=== PATIENT | male | born 1990 | race Hispanic/Latino ===

== ENCOUNTER 2018-12-24 19:08 | Inpatient (IN) | payer OTHER ==
[2018-12-24] MEDS ORDERED: Sodium Chloride 0.9% 1,000 ML IV STA (19:34)
[2018-12-24] MEDS ORDERED: Sodium Chloride 0.9% 50 ML IV ONE (19:40)
[2018-12-24] MEDS ORDERED: Iohexol 300 100 ML IJ ONE (19:40)
[2018-12-24 20:32] LABS: BASO % 0.6 % (0.0-2.0); EOS # 0.1 K/uL (0.0-0.7); EOS % 1.6 % (0.0-4.0); HEMOGLOBIN 16.4 g/dL (12.0-18.0); LYMPH # 1.2 K/uL (1.0-4.3); LYMPH % 14.4 % (20.0-40.0); MEAN CELL VOLUME 89.5 fl (80.0-94.0); MEAN CORPUSCULAR HEMOGLOBIN 30.2 pg (27.0-31.0); MEAN CORPUSCULAR HGB CONC 33.8 g/dL (33.0-37.0); MEAN PLATELET VOLUME 8.2 fl (7.2-11.7); MONO # 0.5 K/uL (0.0-0.8); MONO % 6.4 % (0.0-10.0); NEUT # 6.2 K/uL (1.8-7.0); RBC 5.41 Mil/uL (4.40-5.90); RED CELL DISTRIBUTION WIDTH 12.7 % (11.5-14.5)
[2018-12-24 20:34] LABS: VENOUS BLOOD GAS BASE EXCESS 3.6 mmol/L (0.0-2.0); VENOUS BLOOD GAS PCO2 52 mmHg (40-60); VENOUS BLOOD GAS PO2 28 mm/Hg (30-55); VENOUS BLOOD PH 7.37 (7.32-7.43)
[2018-12-24 20:42] LABS: ALB/GLOB RATIO 1.7 (1.0-2.1); ALBUMIN 4.2 g/dL (3.5-5.0); ALT/SGPT 77 U/L (21-72); AST/SGOT 43 U/L (17-59); BLOOD UREA NITROGEN 22 mg/dl (9-20); CALCIUM 9.1 mg/dL (8.4-10.2); GFR NON-AFRICAN AMERICAN > 60; LIPASE 112 U/L (23-300)
[2018-12-24] MEDS ORDERED: Piperacillin/Tazobact 3.375 GM in Sodium Chloride 0.9% 100 ML IVPB SCH (21:00)
--- NOTE | 2018-12-24 21:16 | ED PDOC ---
HPI: Abdomen Time Seen by Provider: 12/24/18 19:27 Chief Complaint (Nursing): Abdominal Pain Chief Complaint (Provider): Abdominal Pain History Per: Patient History/Exam Limitations: no limitations Onset/Duration Of Symptoms: Hrs Current Symptoms Are (Timing): Still Present Additional Complaint(s): Patient is a 28 y/o male with no significant PMhx who presents to the ED for evaluation of abdominal pain onset this morning. Patient states the pain was initially epigastric and periumbilical but now persists in his right lower quadrant. Of note, patient last ate at 16:00 today. Patient denies abnormal bowel movements, fever, nausea, vomiting, and diarrhea. PCP: Dr. Hector Marie ([place]) Past Medical History Reviewed: Historical Data, Nursing Documentation, Vital Signs Vital Signs: Last Vital Signs Temp 99.3 F 12/24/18 19:20 Pulse 88 12/24/18 19:20 Resp 18 12/24/18 19:20 BP 116/75 12/24/18 19:20 Pulse Ox 99 12/24/18 19:20 Primary Care Provider: Hector Marie I - Medical History PMH: HIV, HTN - Surgical History Surgical History: No Surg Hx - Family History Family History: States: No Known Family Hx - Home Medications Home Medications: Ambulatory Orders Medication Instructions Recorded Emtricitabine/Tenofovir Diso 1 tab PO DAILY 12/25/18 [Truvada 200 MG-300 MG] Lisinopril [Zestril] 10 mg PO DAILY 12/25/18 - Allergies Allergies/Adverse Reactions: Allergies Allergy/AdvReac Type Severity Reaction Status Date / Time No Known Allergies Allergy Verified 12/24/18 19:20 Review of Systems ROS Statement: Except As Marked, All Systems Reviewed And Found Negative Constitutional: Negative for: Fever Gastrointestinal: Positive for: Abdominal Pain (right lower quadrant). Negative for: Nausea, Vomiting, Diarrhea Physical Exam - Reviewed Nursing Documentation Reviewed: Yes Vital Signs Reviewed: Yes - Physical Exam Appears: Positive for: No Acute Distress Head Exam: Positive for: ATRAUMATIC, NORMAL INSPECTION, NORMOCEPHALIC Skin: Positive for: Normal Color, Warm, DRY Eye Exam: Positive for: EOMI, Normal appearance, PERRL Neck: Positive for: Normal, Painless ROM, Supple Cardiovascular/Chest: Positive for: Regular Rate, Rhythm. Negative for: Murmur Respiratory: Positive for: Normal Breath Sounds. Negative for: Respiratory Distress Gastrointestinal/Abdominal: Positive for: Tenderness (at [place]Burney's Point), Other (Positive Rovsings Sign) Back: Positive for: Normal Inspection. Negative for: L CVA Tenderness, R CVA Tenderness Extremity: Positive for: Normal ROM. Negative for: Pedal Edema, Deformity Neurological/Psych: Positive for: Alert, Oriented (x3) - Laboratory Results Result Diagrams: 12/24/18 19:12/24/18: Lab Results: pO2 28 mm/Hg (30-55) L 12/24/18 20:00 VBG pH 7.37 (7.32-7.43) 12/24/18 20:00 VBG pCO2 52 mmHg (40-60) 12/24/18 20:00 VBG HCO3 26.5 mmol/L 12/24/18 20:00 VBG Total CO2 31.7 mmol/L (22-28) H 12/24/18 20:00 VBG O2 Sat (Calc) 53.3 % (40-65) 12/24/18 20:00 VBG Base Excess 3.6 mmol/L (0.0-2.0) H 12/24/18 20:00 VBG Potassium 3.9 mmol/L (3.6-5.2) 12/24/18 20:00 Sodium 135.0 mmol/L (132-148) 12/24/18 20:00 Chloride 102.0 mmol/L (98-107) 12/24/18 20:00 Glucose 87 mg/dL (75-110) 12/24/18 20:00 Lactate 0.8 mmol/L (0.7-2.1) 12/24/18 20:00 FiO2 21.0 % 12/24/18 20:00 Total Bilirubin 0.5 mg/dl (0.2-1.3) 12/24/18: AST 43 U/L (17-59) 12/24/18: ALT 77 U/L (21-72) H 12/24/18:55 Alkaline Phosphatase 76 U/L (38-126) 12/24/18: Total Protein 6.6 G/DL (6.3-8.2) 12/24/18:55 Albumin 4.2 g/dL (3.5-5.0) 12/24/18 19:55 Globulin 2.4 gm/dL (2.2-3.9) 12/24/18 19:55 Albumin/Globulin Ratio 1.7 (1.0-2.1) 12/24/18 19:55 Lipase 112 U/L (23-300) 12/24/18 19:55 - ECG O2 Sat by Pulse Oximetry: 99 (RA) Pulse Ox Interpretation: Normal Medical Decision Making Medical Decision Making: Time: 1933 Impression: Likely acute appendicitis. Less likely diverticulitis, mesenteritis, colitis, or others not considered. Plan: Type and Screen VBG CT Abd & Pelvis IV Contrast only CMP Lipase CBC IV Fluids Toradol 15 mg IVP Zosyn Blood Culture Urine Culture 2215 EXAM: CT Abdomen and Pelvis with IV contrast CLINICAL HISTORY: Rlq pain TECHNIQUE: Axial computed tomography images of the abdomen and pelvis with intravenous contrast. 752.37 mGy-cm CONTRAST: With; [id number] 95ML COMPARISON: None provided. FINDINGS: LUNG BASES: The lung bases appear clear. No pleural effusions are seen. LIVER: Unremarkable. GALLBLADDER AND BILE DUCTS: The gallbladder appears within normal limits. No radioopaque gallstones are seen. No biliary ductal dilatation is evident. PANCREAS: Unremarkable. SPLEEN: Unremarkable. ADRENAL GLANDS: Unremarkable. KIDNEYS, URETERS, AND BLADDER: The kidneys appear within normal limits. There is no hydronephrosis or hydroureter. No urinary calculi are seen. STOMACH AND BOWEL: Duodenal wall thickening is seen ( 6 mm) compatible with severe duodenitis. Consider follow up with upper endoscopy. APPENDIX: Fluid-filled thick-walled appendix is seen consistent with appendicitis (IM 109- 117 Se 3). No rupture or abscess is seen. PERITONEUM: No free fluid. No free air. LYMPH NODES: No lymphadenopathy is evident. REPRODUCTIVE: Unremarkable as visualized. VASCULATURE: No evidence of abdominal aortic aneurysm. BONES: No aggressive appearing osseous lesion. No acute osseous pathology evident. IMPRESSION: 1. Severe duodenitis. Consider follow up with upper endoscopy. 2. Acute appendicitis. Reported to Dr. Salcedo 10:17pm EST. Electronically signed on December 24, 2018 10:20:26 PM EDT by: Malcolm Finn M.D., M.B.A., Certified By [employer] Trained MRI and CT Specialist Patient feeling well at this time Spoke with Dr. Johnson, rn surgical who evaluated patient at bedside. Discussed case with Dr. Valentino Harvey who states patient will go to OR in AM Discussed with PMD Maxwell Georges DNP, who accepts admission. Scribe Attestation: Documented by Tavo Fletcher, acting as a scribe for Joao Levy MD. Provider Scribe Attestation: All medical record entries made by the Scribe were at my direction and personally dictated by me. I have reviewed the chart and agree that the record accurately reflects my personal performance of the history, physical exam, medical decision making, and the department course for this patient. I have also personally directed, reviewed, and agree with the discharge instructions and disposition. Disposition - Clinical Impression Clinical Impression: Acute appendicitis - Patient ED Disposition Is Patient to be Admitted: Yes Discussed With DrKamron: Valentino Harvey Doctor Will See Patient In The: Hospital Counseled Patient/Family Regarding: Studies Performed, Diagnosis - Disposition Disposition Time: 22:15 Condition: FAIR
[2018-12-24] MEDS ORDERED: Piperacillin/Tazobact 3.375 gm Inj IVPB ONE (22:12)
--- NOTE | 2018-12-24 23:41 | CP.PCM.CON ---
<Aminta Johnson - Last Filed: 12/24/18 23:38> History of Present Illness - History of Present Illness History of Present Illness: Surgery: Dr. Harvey CC: RLQ abdominal pain HPI: Patient is a 28 y/o male w/ pmhx of anal warts and HTN presents complaining of periumbilical abdominal pain that started earlier today. He states the pain was moderate but quickly john to severe pain and then localized in the RLQ of the abdomen. He reports extension for the trunk makes the pain worse. He reports appetite. Denies sick contacts. He denies associated n/v/f/c diarrhea or constipation. He was seen by his PMD today for the pain who sent him to ER for further evaluation. PMH: HTN, anal warts PSH: anal wart excision Medicines: Truvada for prep, lisinopril Social: socially ETOH use, denies tobacco or drug use Fam: noncontributory PMD: [facility] Review of Systems - Constitutional Constitutional: absent: Anorexia, Chills, Fever, Headache - EENT Eyes: absent: Blurred Vision, Change in Vision Nose/Mouth/Throat: absent: Nasal Congestion, Sore Throat - Cardiovascular Cardiovascular: absent: Chest Pain, Dyspnea - Respiratory Respiratory: absent: Cough, Wheezing - Gastrointestinal Gastrointestinal: Abdominal Pain. absent: Bloating, Constipation, Diarrhea, Dysphagia, Hematemesis, Hematochezia, Nausea, Vomiting - Genitourinary Genitourinary: absent: Hematuria, Pyuria - Musculoskeletal Musculoskeletal: absent: Arthralgias, Back Pain - Integumentary Integumentary: absent: New Lesions, Rash, Wounds - Neurological Neurological: absent: Dizziness, Numbness - Psychiatric Psychiatric: absent: Confusion, Depression - Endocrine Endocrine: absent: Polyphagia, Polyuria - Hematologic/Lymphatic Hematologic: absent: Easy Bleeding, Easy Bruising Past Patient History - Past Social History Smoking Status: Never Smoked Alcohol: Social - CARDIAC Hx Hypertension: Yes - HEMATOLOGICAL/ONCOLOGICAL Hx Human Immunodeficiency Virus (HIV): Yes - PSYCHIATRIC Hx Substance Use: No Meds Allergies/Adverse Reactions: Allergies Allergy/AdvReac Type Severity Reaction Status Date / Time No Known Allergies Allergy Verified 12/24/18 19:20 - Medications Medications: Current Medications Hydromorphone HCl (Dilaudid) 0.5 mg IVP Q4 PRN PRN Reason: Pain, moderate (4-7) Lactated Ringer's (Lactated Ringer's) 1,000 mls @ 125 mls/hr IV .Q8H NEREYDA Piperacillin Sod/Tazobactam (Sod 3.375 gm/ Sodium Chloride) 100 mls @ 100 mls/hr IVPB Q6 NEREYDA; Protocol Ondansetron HCl (Zofran Inj) 4 mg IVP Q4 PRN PRN Reason: Nausea/Vomiting Physical Exam - Constitutional Appears: Non-toxic, No Acute Distress - Head Exam Head Exam: ATRAUMATIC, NORMOCEPHALIC - Eye Exam Eye Exam: EOMI, Normal appearance - ENT Exam ENT Exam: Mucous Membranes Moist - Respiratory Exam Respiratory Exam: NORMAL BREATHING PATTERN. absent: Respiratory Distress - Cardiovascular Exam Cardiovascular Exam: REGULAR RHYTHM. absent: Tachycardia - GI/Abdominal Exam GI & Abdominal Exam: Guarding (voluntary with palpation of the RLQ), Soft, Tenderness (+McBurney's + Rovsing's). absent: Distended, Hernia, Rebound, Rigid - Extremities Exam Extremities exam: Positive for: normal inspection. Negative for: calf tenderness - Back Exam Back exam: absent: CVA tenderness (L), CVA tenderness (R), rash noted - Neurological Exam Neurological exam: Alert, Oriented x3 - Psychiatric Exam Psychiatric exam: Normal Affect, Normal Mood - Skin Skin Exam: Dry, Normal Color, Warm Results - Vital Signs Recent Vital Signs: Last Vital Signs Temp 99.3 F 12/24/18 19:20 Pulse 88 12/24/18 19:20 Resp 18 12/24/18 19:20 BP 116/75 12/24/18 19:20 Pulse Ox 99 12/24/18 21:46 - Labs Result Diagrams: 12/24/18 19:55 12/24/18 19:55 Labs: Laboratory Results - last 24 hr 12/24/18 12/24/18 12/24/18 19:55 19:55 19:55 WBC 8.0 RBC 5.41 Hgb 16.4 Hct 48.4 MCV 89.5 MCH 30.2 MCHC 33.8 RDW 12.7 Plt Count 182 MPV 8.2 Neut % (Auto) 77.0 H Lymph % (Auto) 14.4 L Bartholomew % (Auto) 6.4 Eos % (Auto) 1.6 Baso % (Auto) 0.6 Neut # (Auto) 6.2 Lymph # (Auto) 1.2 Bartholomew # (Auto) 0.5 Eos # (Auto) 0.1 Baso # (Auto) 0.0 pO2 VBG pH VBG pCO2 VBG HCO3 VBG Total CO2 VBG O2 Sat (Calc) VBG Base Excess VBG Potassium Glucose Lactate FiO2 Sodium 138 Potassium 3.8 Chloride 102 Carbon Dioxide 26 Anion Gap 14 BUN 22 H Creatinine 1.0 Est GFR ( Amer) > 60 Est GFR (Non-Af Amer) > 60 Random Glucose 94 Calcium 9.1 Total Bilirubin 0.5 AST 43 ALT 77 H Alkaline Phosphatase 76 Total Protein 6.6 Albumin 4.2 Globulin 2.4 Albumin/Globulin Ratio 1.7 Lipase 112 Venous Blood Potassium Blood Type O POSITIVE Antibody Screen Negative BBK History Checked No verified bt 12/24/18 20:00 WBC RBC Hgb Hct MCV MCH MCHC RDW Plt Count MPV Neut % (Auto) Lymph % (Auto) Bartholomew % (Auto) Eos % (Auto) Baso % (Auto) Neut # (Auto) Lymph # (Auto) Bartholomew # (Auto) Eos # (Auto) Baso # (Auto) pO2 28 L VBG pH 7.37 VBG pCO2 52 VBG HCO3 26.5 VBG Total CO2 31.7 H VBG O2 Sat (Calc) 53.3 VBG Base Excess 3.6 H VBG Potassium 3.9 Glucose 87 Lactate 0.8 FiO2 21.0 Sodium 135.0 Potassium Chloride 102.0 Carbon Dioxide Anion Gap BUN Creatinine Est GFR ( Amer) Est GFR (Non-Af Amer) Random Glucose Calcium Total Bilirubin AST ALT Alkaline Phosphatase Total Protein Albumin Globulin Albumin/Globulin Ratio Lipase Venous Blood Potassium 3.9 Blood Type Antibody Screen BBK History Checked - Impressions Impression: CT scan: duodenitis and dilated fluid filled appendix with periappendiceal inflammation Assessment & Plan - Assessment and Plan (Free Text) Assessment: 28 y/o male w/ appendicitis Plan: -Plan for possible OR 12/25 -NPO -IVFs -IV abx -pain control -zofran for nausea -am labs -type and screen -d/w Dr. Wes Weston PGY4 <Mikie Duke - Last Filed: 12/25/18 12:50> History of Present Illness - History of Present Illness History of Present Illness: Patient was seen and examined at the bedside. Agree with resident's note above. Meds - Medications Medications: Current Medications Hydromorphone HCl (Dilaudid) 0.5 mg IVP Q5M PRN PRN Reason: Pain, moderate (4-7) Stop: 12/25/18 13:57 Hydromorphone HCl (Dilaudid) 0.5 mg IVP Q4 PRN PRN Reason: Pain, moderate (4-7) Lactated Ringer's (Lactated Ringer's) 1,000 mls @ 125 mls/hr IV .Q8H NEREYDA Last Admin: 12/25/18 08:12 Dose: 125 mls/hr Piperacillin Sod/Tazobactam (Sod 3.375 gm/ Sodium Chloride) 100 mls @ 100 mls/hr IVPB Q6 NEREYDA; Protocol Last Admin: 12/25/18 09:07 Dose: 100 mls/hr Ondansetron HCl (Zofran Inj) 4 mg IVP Q4 PRN PRN Reason: Nausea/Vomiting Physical Exam - GI/Abdominal Exam Additional comments: soft, RLQ tenderness, ND, BS+, no rebound, no guarding Results - Vital Signs Recent Vital Signs: Last Vital Signs Temp 98.2 F 12/25/18 11:50 Pulse 68 12/25/18 12:35 Resp 18 12/25/18 12:35 BP 116/74 12/25/18 12:35 Pulse Ox 99 12/25/18 12:35 - Labs Result Diagrams: 12/25/18 06:05 12/25/18 06:05 Labs: Laboratory Results - last 24 hr 12/24/18 12/24/18 12/24/18 19:55 19:55 19:55 WBC 8.0 RBC 5.41 Hgb 16.4 Hct 48.4 MCV 89.5 MCH 30.2 MCHC 33.8 RDW 12.7 Plt Count 182 MPV 8.2 Neut % (Auto) 77.0 H Lymph % (Auto) 14.4 L Bartholomew % (Auto) 6.4 Eos % (Auto) 1.6 Baso % (Auto) 0.6 Neut # (Auto) 6.2 Lymph # (Auto) 1.2 Bartholomew # (Auto) 0.5 Eos # (Auto) 0.1 Baso # (Auto) 0.0 PT INR APTT pO2 VBG pH VBG pCO2 VBG HCO3 VBG Total CO2 VBG O2 Sat (Calc) VBG Base Excess VBG Potassium Glucose Lactate FiO2 Sodium 138 Potassium 3.8 Chloride 102 Carbon Dioxide 26 Anion Gap 14 BUN 22 H Creatinine 1.0 Est GFR ( Amer) > 60 Est GFR (Non-Af Amer) > 60 Random Glucose 94 Calcium 9.1 Total Bilirubin 0.5 AST 43 ALT 77 H Alkaline Phosphatase 76 Total Protein 6.6 Albumin 4.2 Globulin 2.4 Albumin/Globulin Ratio 1.7 Lipase 112 Venous Blood Potassium Blood Type O POSITIVE Blood Type Confirm Antibody Screen Negative BBK History Checked No verified bt 12/24/18 12/25/18 12/25/18 20:00 06:05 06:05 WBC 6.1 RBC 4.89 Hgb 14.8 Hct 44.1 MCV 90.1 MCH 30.2 MCHC 33.6 RDW 12.7 Plt Count 165 MPV 8.1 Neut % (Auto) 64.3 Lymph % (Auto) 25.2 Bartholomew % (Auto) 7.1 Eos % (Auto) 2.7 Baso % (Auto) 0.7 Neut # (Auto) 3.9 Lymph # (Auto) 1.5 Bartholomew # (Auto) 0.4 Eos # (Auto) 0.2 Baso # (Auto) 0.0 PT INR APTT pO2 28 L VBG pH 7.37 VBG pCO2 52 VBG HCO3 26.5 VBG Total CO2 31.7 H VBG O2 Sat (Calc) 53.3 VBG Base Excess 3.6 H VBG Potassium 3.9 Glucose 87 Lactate 0.8 FiO2 21.0 Sodium 135.0 Potassium Chloride 102.0 Carbon Dioxide Anion Gap BUN Creatinine Est GFR ( Amer) Est GFR (Non-Af Amer) Random Glucose Calcium Total Bilirubin AST ALT Alkaline Phosphatase Total Protein Albumin Globulin Albumin/Globulin Ratio Lipase Venous Blood Potassium 3.9 Blood Type Blood Type Confirm O POSITIVE Antibody Screen BBK History Checked 12/25/18 12/25/18 06:05 06:05 WBC RBC Hgb Hct MCV MCH MCHC RDW Plt Count MPV Neut % (Auto) Lymph % (Auto) Bartholomew % (Auto) Eos % (Auto) Baso % (Auto) Neut # (Auto) Lymph # (Auto) Bartholomew # (Auto) Eos # (Auto) Baso # (Auto) PT 12.5 INR 1.1 APTT 29.9 pO2 VBG pH VBG pCO2 VBG HCO3 VBG Total CO2 VBG O2 Sat (Calc) VBG Base Excess VBG Potassium Glucose Lactate FiO2 Sodium 137 Potassium 4.6 Chloride 103 Carbon Dioxide 28 Anion Gap 11 BUN 21 H Creatinine 1.1 Est GFR ( Amer) > 60 Est GFR (Non-Af Amer) > 60 Random Glucose 86 Calcium 8.9 Total Bilirubin AST ALT Alkaline Phosphatase Total Protein Albumin Globulin Albumin/Globulin Ratio Lipase Venous Blood Potassium Blood Type Blood Type Confirm Antibody Screen BBK History Checked - Imaging and Cardiology CT scan - abdomen Status: Image reviewed by me, Report reviewed by me Assessment & Plan - Assessment and Plan (Free Text) Plan: - To Or for Appendectomy
[2018-12-25] MEDS: Lactated Ringer's 1,000 ML IV SCH ×2 (00:06→08:12)
[2018-12-25 02:12] VITALS: BMI 28.0
[2018-12-25] MEDS: HYDROmorphone 0.5 mg/0.5 ml ISec IVP PRN ×5 (02:18→13:05)
[2018-12-25] MEDS: Piperacillin/Tazobact 3.375 GM in Sodium Chloride 0.9% 100 ML IVPB SCH ×2 (03:51→09:07)
[2018-12-25 06:27] LABS: BASO % 0.7 % (0.0-2.0); EOS # 0.2 K/uL (0.0-0.7); EOS % 2.7 % (0.0-4.0); HEMOGLOBIN 14.8 g/dL (12.0-18.0); LYMPH # 1.5 K/uL (1.0-4.3); LYMPH % 25.2 % (20.0-40.0); MEAN CELL VOLUME 90.1 fl (80.0-94.0); MEAN CORPUSCULAR HEMOGLOBIN 30.2 pg (27.0-31.0); MEAN CORPUSCULAR HGB CONC 33.6 g/dL (33.0-37.0); MEAN PLATELET VOLUME 8.1 fl (7.2-11.7); MONO # 0.4 K/uL (0.0-0.8); MONO % 7.1 % (0.0-10.0); NEUT # 3.9 K/uL (1.8-7.0); NEUT % 64.3 % (50.0-75.0); RBC 4.89 Mil/uL (4.40-5.90); RED CELL DISTRIBUTION WIDTH 12.7 % (11.5-14.5); WHITE BLOOD COUNT 6.1 K/uL (4.8-10.8)
[2018-12-25 06:31] LABS: INR 1.1; PROTHROMBIN TIME 12.5 Seconds (9.8-13.1)
[2018-12-25 06:33] LABS: PARTIAL THROMBOPLASTIN TIME 29.9 Seconds (25.6-37.1)
[2018-12-25 06:46] LABS: BLOOD UREA NITROGEN 21 mg/dl (9-20); CALCIUM 8.9 mg/dL (8.4-10.2); GFR NON-AFRICAN AMERICAN > 60
--- NOTE | 2018-12-25 08:24 | CT ---
Date of service: 12/24/2018 PROCEDURE: CT Abdomen and Pelvis with contrast HISTORY: RLQ pain COMPARISON: None. TECHNIQUE: Contrast dose: 95 cc of Omnipaque 300 intravenously. Axial and reformatted coronal and sagittal CT images of the abdomen and pelvis were obtained after IV contrast administration. Radiation dose: Total exam DLP = 752.37 mGy-cm. This CT exam was performed using one or more of the following dose reduction techniques: Automated exposure control, adjustment of the mA and/or kV according to patient size, and/or use of iterative reconstruction technique. FINDINGS: LOWER THORAX: Unremarkable. LIVER: Mildly enlarged. No gross lesion or ductal dilatation. GALLBLADDER AND BILE DUCTS: Unremarkable. PANCREAS: Unremarkable. No gross lesion or ductal dilatation. SPLEEN: Unremarkable. ADRENALS: Unremarkable. No mass. KIDNEYS AND URETERS: There is 4 millimeter calcification noted at the lower pole of right kidney suggestive of nonobstructing renal calculus. No hydronephrosis. No solid mass. VASCULATURE: Unremarkable. No aortic aneurysm. No aortic atherosclerotic calcification or mural plaque present. BOWEL: There is diffuse wall thickening of the duodenum noted. There is a focal soft tissue protrusion in the descending portion of the duodenum may represent polyp. Further evaluation is suggested. No evidence of high-grade bowel obstruction. APPENDIX: The appendix is mildly enlarged surrounding with inflammatory changes suspicious for acute appendicitis. PERITONEUM: Unremarkable. No free fluid. No free air. LYMPH NODES: Unremarkable. No enlarged lymph nodes. BLADDER: Unremarkable. REPRODUCTIVE: Unremarkable. BONES: No acute fracture. OTHER FINDINGS: None. IMPRESSION: Findings consistent with acute appendicitis. No evidence of abscess formation or free air. 4 millimeter nonobstructing calculus at the lower pole of the right kidney. Diffuse duodenal wall thickening. Suspicious for 1.3 centimeter polyp in the descending portion of the duodenum best seen on image 52 series 601 coronal. Further evaluation is suggested. Preliminary report was submitted by [facility] Radiology contains concordant findings. Additional findings in this report were also mentioned.
--- NOTE | 2018-12-25 08:49 | CP.PCM.HP ---
History of Present Illness - History of Present Illness History of Present Illness: pt admitted for appendicitis. states has been having discomfort to that site x 2-3 days. no f/c, n/v/d. bwand imaging and surgical consult appriciated. no anesthesia problems in past. Present on Admission - Present on Admission Any Indicators Present on Admission: No Review of Systems - Gastrointestinal Gastrointestinal: As Per HPI, Abdominal Pain Past Patient History - Past Medical History & Family History Past Medical History?: Yes - Past Social History Smoking Status: Never Smoked - CARDIAC Hx Hypertension: Yes - PULMONARY Hx Respiratory Disorders: No - NEUROLOGICAL Hx Neurological Disorder: No - HEENT Hx HEENT Problems: No - RENAL Hx Chronic Kidney Disease: No - ENDOCRINE/METABOLIC Hx Endocrine Disorders: No - HEMATOLOGICAL/ONCOLOGICAL Hx Human Immunodeficiency Virus (HIV): Yes - INTEGUMENTARY Hx Dermatological Problems: No - MUSCULOSKELETAL/RHEUMATOLOGICAL Hx Musculoskeletal Disorders: No Hx Falls: No - GASTROINTESTINAL Hx Gastrointestinal Disorders: No - GENITOURINARY/GYNECOLOGICAL Hx Genitourinary Disorders: No - PSYCHIATRIC Hx Psychophysiologic Disorder: No Hx Substance Use: No - SURGICAL HISTORY Hx Surgeries: Yes Other/Comment: Anal wart excision - ANESTHESIA Hx Anesthesia: Yes Hx Anesthesia Reactions: No Meds Allergies/Adverse Reactions: Allergies Allergy/AdvReac Type Severity Reaction Status Date / Time No Known Allergies Allergy Verified 12/24/18 19:20 Physical Exam - Constitutional Appears: Well, Non-toxic, No Acute Distress - Head Exam Head Exam: ATRAUMATIC, NORMAL INSPECTION, NORMOCEPHALIC - Eye Exam Eye Exam: EOMI, Normal appearance, PERRL Pupil Exam: NORMAL ACCOMODATION, PERRL - ENT Exam ENT Exam: Mucous Membranes Moist, Normal Exam - Neck Exam Neck exam: Positive for: Normal Inspection - Respiratory Exam Respiratory Exam: Clear to Auscultation Bilateral, NORMAL BREATHING PATTERN - Cardiovascular Exam Cardiovascular Exam: REGULAR RHYTHM, RRR, +S1, +S2 - GI/Abdominal Exam GI & Abdominal Exam: Normal Bowel Sounds, Soft. absent: Tenderness - Extremities Exam Extremities exam: Positive for: full ROM, normal capillary refill, normal inspection, pedal pulses present - Back Exam Back exam: NORMAL INSPECTION - Neurological Exam Neurological exam: Alert, CN II-XII Intact, Normal Gait, Oriented x3, Reflexes Normal - Psychiatric Exam Psychiatric exam: Normal Affect, Normal Mood - Skin Skin Exam: Dry, Intact, Normal Color, Warm Results - Vital Signs Recent Vital Signs: Last Vital Signs Temp 97.9 F 12/25/18 08:13 Pulse 64 12/25/18 08:13 Resp 20 12/25/18 08:13 BP 119/66 12/25/18 08:13 Pulse Ox 97 12/25/18 08:13 - Labs Result Diagrams: 12/25/18 06:05 12/25/18 06:05 Labs: Laboratory Results - last 24 hr 12/24/18 12/24/18 12/24/18 19:55 19:55 19:55 WBC 8.0 RBC 5.41 Hgb 16.4 Hct 48.4 MCV 89.5 MCH 30.2 MCHC 33.8 RDW 12.7 Plt Count 182 MPV 8.2 Neut % (Auto) 77.0 H Lymph % (Auto) 14.4 L [place] % (Auto) 6.4 Eos % (Auto) 1.6 Baso % (Auto) 0.6 Neut # (Auto) 6.2 Lymph # (Auto) 1.2 [place] # (Auto) 0.5 Eos # (Auto) 0.1 Baso # (Auto) 0.0 PT INR APTT pO2 VBG pH VBG pCO2 VBG HCO3 VBG Total CO2 VBG O2 Sat (Calc) VBG Base Excess VBG Potassium Glucose Lactate FiO2 Sodium 138 Potassium 3.8 Chloride 102 Carbon Dioxide 26 Anion Gap 14 BUN 22 H Creatinine 1.0 Est GFR ( Amer) > 60 Est GFR (Non-Af Amer) > 60 Random Glucose 94 Calcium 9.1 Total Bilirubin 0.5 AST 43 ALT 77 H Alkaline Phosphatase 76 Total Protein 6.6 Albumin 4.2 Globulin 2.4 Albumin/Globulin Ratio 1.7 Lipase 112 Venous Blood Potassium Blood Type O POSITIVE Blood Type Confirm Antibody Screen Negative BBK History Checked No verified bt 12/24/18 12/25/18 12/25/18 20:00 06:05 06:05 WBC 6.1 RBC 4.89 Hgb 14.8 Hct 44.1 MCV 90.1 MCH 30.2 MCHC 33.6 RDW 12.7 Plt Count 165 MPV 8.1 Neut % (Auto) 64.3 Lymph % (Auto) 25.2 [place] % (Auto) 7.1 Eos % (Auto) 2.7 Baso % (Auto) 0.7 Neut # (Auto) 3.9 Lymph # (Auto) 1.5 [place] # (Auto) 0.4 Eos # (Auto) 0.2 Baso # (Auto) 0.0 PT INR APTT pO2 28 L VBG pH 7.37 VBG pCO2 52 VBG HCO3 26.5 VBG Total CO2 31.7 H VBG O2 Sat (Calc) 53.3 VBG Base Excess 3.6 H VBG Potassium 3.9 Glucose 87 Lactate 0.8 FiO2 21.0 Sodium 135.0 Potassium Chloride 102.0 Carbon Dioxide Anion Gap BUN Creatinine Est GFR ( Amer) Est GFR (Non-Af Amer) Random Glucose Calcium Total Bilirubin AST ALT Alkaline Phosphatase Total Protein Albumin Globulin Albumin/Globulin Ratio Lipase Venous Blood Potassium 3.9 Blood Type Blood Type Confirm O POSITIVE Antibody Screen BBK History Checked 12/25/18 12/25/18 06:05 06:05 WBC RBC Hgb Hct MCV MCH MCHC RDW Plt Count MPV Neut % (Auto) Lymph % (Auto) [place] % (Auto) Eos % (Auto) Baso % (Auto) Neut # (Auto) Lymph # (Auto) [place] # (Auto) Eos # (Auto) Baso # (Auto) PT 12.5 INR 1.1 APTT 29.9 pO2 VBG pH VBG pCO2 VBG HCO3 VBG Total CO2 VBG O2 Sat (Calc) VBG Base Excess VBG Potassium Glucose Lactate FiO2 Sodium 137 Potassium 4.6 Chloride 103 Carbon Dioxide 28 Anion Gap 11 BUN 21 H Creatinine 1.1 Est GFR ( Amer) > 60 Est GFR (Non-Af Amer) > 60 Random Glucose 86 Calcium 8.9 Total Bilirubin AST ALT Alkaline Phosphatase Total Protein Albumin Globulin Albumin/Globulin Ratio Lipase Venous Blood Potassium Blood Type Blood Type Confirm Antibody Screen BBK History Checked Assessment & Plan (1) DVT prophylaxis Assessment and Plan: scd and ae hose ambulation Status: Acute (2) Acute appendicitis Assessment and Plan: zosyn, pain control npo, ivf surgical consult cleared for srugery Status: Acute Decision To Admit - Pt Status Changed To: Hospital Disposition Of: Inpatient - Admit Certification Admit to Inpatient:: After my assessment, the patient will require hospitalization for at least two midnights. This is because of the severity of symptoms shown, intensity of services needed, and/or the medical risk in this patient being treated as an outpatient. - . Bed Request Type: Med/Surg Admitting Physician: Gerardo Hartman
[2018-12-25] MEDS ORDERED: Propofol 10 mg/ml Inj (20 ML) ONE (10:05)
[2018-12-25] MEDS ORDERED: Rocuronium 10 mg/ml (5 ml) ONE (10:05)
[2018-12-25] MEDS ORDERED: Succinylcholine Chloride 20 mg/ml Syr (5 ml) IV ONE (10:07)
[2018-12-25] MEDS ORDERED: Lactated Ringer's 1,000 ML IV ONE ×2 (10:25→11:38)
[2018-12-25] MEDS ORDERED: Lidocaine 1% Inj (20ml) ONE (10:49)
[2018-12-25] MEDS ORDERED: Bupivacaine 0.5% Inj(30mL) ONE (10:49)
[2018-12-25] MEDS ORDERED: Lidocaine 1% w Epi 1:100,000 Inj ONE (10:49)
[2018-12-25] MEDS ORDERED: Neostigmine 1:1000 (1 mg/ml) Inj ONE (11:15)
[2018-12-25] MEDS ORDERED: Bupivacaine 0.5% 50 ML IJ ONE (11:36)
--- NOTE | 2018-12-25 11:56 | PCM.SURG1 ---
Surgeon's Initial Post Op Note - Surgeon's Notes Surgeon: Dr. Duke Nurse Auditor: Elpidio PGY2 Type of Anesthesia: General Endo, Local Anesthesia Administered By: Dr. Tao Pre-Operative Diagnosis: Acute appendicitis Operative Findings: Acute appendicitis Post-Operative Diagnosis: Acute appendicitis Operation Performed: Laparoscopic Appendectomy Specimen/Specimens Removed: Appendix Estimated Blood Loss: EBL {In ML}: 5 Blood Products Given: N/A Drains Used: No Drains Post-Op Condition: Good Date of Surgery/Procedure: 12/25/18 Time of Surgery/Procedure: 11:56
[2018-12-25] MEDS ORDERED: HYDROmorphone 0.5 mg/0.5 ml ISec IVP PRN (11:59)
[2018-12-25 14:10] VITALS: RESP 19
[2018-12-25 15:38] VITALS: BP 124/75; PULSE 67; TEMP 98; O2SAT 98
--- NOTE | 2018-12-25 17:07 | CP.PCM.DIS ---
Provider - Provider Date of Admission: 12/24/18 22:33 Attending physician: Gerardo Hartman MD Consults: 12/24/18 22:41 Surgery [General Surgery Consult] Stat Comment: Consulting Provider: Valentino Harvey Consulting Physician: Valentino Harvey Reason for Consult: acute appendicits Time Spent in preparation of Discharge (in minutes): 15 Diagnosis - Discharge Diagnosis (1) DVT prophylaxis Status: Acute (2) Acute appendicitis Status: Acute Hospital Course - Lab Results Lab Results: Most Recent Lab Values WBC 6.1 K/uL (4.8-10.8) 12/25/18 06:05 RBC 4.89 Mil/uL (4.40-5.90) 12/25/18 06:05 Hgb 14.8 g/dL (12.0-18.0) 12/25/18 06:05 Hct 44.1 % (35.0-51.0) 12/25/18 06:05 MCV 90.1 fl (80.0-94.0) 12/25/18 06:05 MCH 30.2 pg (27.0-31.0) 12/25/18 06:05 MCHC 33.6 g/dL (33.0-37.0) 12/25/18 06:05 RDW 12.7 % (11.5-14.5) 12/25/18 06:05 Plt Count 165 K/uL (130-400) 12/25/18 06:05 MPV 8.1 fl (7.2-11.7) 12/25/18 06:05 Neut % (Auto) 64.3 % (50.0-75.0) 12/25/18 06:05 Lymph % (Auto) 25.2 % (20.0-40.0) 12/25/18 06:05 [place] % (Auto) 7.1 % (0.0-10.0) 12/25/18 06:05 Eos % (Auto) 2.7 % (0.0-4.0) 12/25/18 06:05 Baso % (Auto) 0.7 % (0.0-2.0) 12/25/18 06:05 Neut # (Auto) 3.9 K/uL (1.8-7.0) 12/25/18 06:05 Lymph # (Auto) 1.5 K/uL (1.0-4.3) 12/25/18 06:05 [place] # (Auto) 0.4 K/uL (0.0-0.8) 12/25/18 06:05 Eos # (Auto) 0.2 K/uL (0.0-0.7) 12/25/18 06:05 Baso # (Auto) 0.0 K/uL (0.0-0.2) 12/25/18 06:05 PT 12.5 Seconds (9.8-13.1) 12/25/18 06:05 INR 1.1 12/25/18 06:05 APTT 29.9 Seconds (25.6-37.1) 12/25/18 06:05 pO2 28 mm/Hg (30-55) L 12/24/18 20:00 VBG pH 7.37 (7.32-7.43) 12/24/18 20:00 VBG pCO2 52 mmHg (40-60) 12/24/18 20:00 VBG HCO3 26.5 mmol/L 12/24/18 20:00 VBG Total CO2 31.7 mmol/L (22-28) H 12/24/18 20:00 VBG O2 Sat (Calc) 53.3 % (40-65) 12/24/18 20:00 VBG Base Excess 3.6 mmol/L (0.0-2.0) H 12/24/18 20:00 VBG Potassium 3.9 mmol/L (3.6-5.2) 12/24/18 20:00 Sodium 135.0 mmol/L (132-148) 12/24/18 20:00 Chloride 102.0 mmol/L (98-107) 12/24/18 20:00 Glucose 87 mg/dL (75-110) 12/24/18 20:00 Lactate 0.8 mmol/L (0.7-2.1) 12/24/18 20:00 FiO2 21.0 % 12/24/18 20:00 Sodium 137 mmol/l (132-148) 12/25/18 06:05 Potassium 4.6 MMOL/L (3.6-5.0) 12/25/18 06:05 Chloride 103 mmol/L (98-107) 12/25/18 06:05 Carbon Dioxide 28 mmol/L (22-30) 12/25/18 06:05 Anion Gap 11 (10-20) 12/25/18 06:05 BUN 21 mg/dl (9-20) H 12/25/18 06:05 Creatinine 1.1 mg/dl (0.8-1.5) 12/25/18 06:05 Est GFR ( Amer) > 60 12/25/18 06:05 Est GFR (Non-Af Amer) > 60 12/25/18 06:05 Random Glucose 86 mg/dL (75-110) 12/25/18 06:05 Calcium 8.9 mg/dL (8.4-10.2) 12/25/18 06:05 Total Bilirubin 0.5 mg/dl (0.2-1.3) 12/24/18 19:55 AST 43 U/L (17-59) 12/24/18 19:55 ALT 77 U/L (21-72) H 12/24/18 19:55 Alkaline Phosphatase 76 U/L (38-126) 12/24/18 19:55 Total Protein 6.6 G/DL (6.3-8.2) 12/24/18 19:55 Albumin 4.2 g/dL (3.5-5.0) 12/24/18 19:55 Globulin 2.4 gm/dL (2.2-3.9) 12/24/18 19:55 Albumin/Globulin Ratio 1.7 (1.0-2.1) 12/24/18 19:55 Lipase 112 U/L (23-300) 12/24/18 19:55 Venous Blood Potassium 3.9 mmol/L (3.6-5.2) 12/24/18 20:00 Blood Type O POSITIVE 12/24/18 19:55 Blood Type Confirm O POSITIVE 12/25/18 06:05 Antibody Screen Negative 12/24/18 19:55 BBK History Checked No verified bt 12/24/18 19:55 - Hospital Course Hospital Course: surgical consult, s/p lap appy pain control Discharge Exam - Head Exam Head Exam: ATRAUMATIC, NORMAL INSPECTION, NORMOCEPHALIC Discharge Plan - Discharge Medications Prescriptions: Amoxicillin/Clavulanate [Augmentin 875 MG-125 MG] 1 tab PO Q12 #10 tab oxyCODONE/Acetaminophen [Percocet 5/325 mg Tab] 1 tab PO Q6 PRN #10 tab PRN Reason: Pain, Severe (8-10) - Follow Up Plan Condition: FAIR Disposition: HOME/ ROUTINE Instructions: Laceration Repair With Glue (DC), Appendectomy, Laparoscopic Surgery (DC) Additional Instructions: follow up with dr duke 1 week final dx- appendicitis doing well. nancy po, pain controlled. f/u rmg and surgery as directed. rted prn Referrals: Mikie Duke MD [Staff Provider] -
--- NOTE | 2018-12-25 22:29 | OP ---
PROCEDURE DATE: 12/25/2018 PREOPERATIVE DIAGNOSIS: Acute appendicitis. POSTOPERATIVE DIAGNOSIS: Acute appendicitis. PROCEDURE: Laparoscopic appendectomy. SURGEON: Mikie Duke MD DISTRICT SUPERINTENDENT: Jude Magallanes DO, rn medical surgical. ANESTHESIA: General endotracheal intubation. INTRAVENOUS FLUIDS: Crystalloids. ESTIMATED BLOOD LOSS: 5 mL. INTRAOPERATIVE FINDINGS: Acute appendicitis. SPECIMEN: Appendix. BRIEF HISTORY: Mr. Mcallister is a very pleasant 28-year-old gentleman who came to the hospital complaining of right lower quadrant abdominal pain and upon further investigation and a CAT scan, the patient was found to have acute appendicitis on the CAT scan. All the risks and benefits of the procedure were explained to the patient and with the patient having a full understanding of all the risks and benefits involved, informed consent was obtained and the patient was taken to the operating room for above-stated procedure. DESCRIPTION OF THE PROCEDURE: The patient was brought into the operating room and placed supine on the operating room table. Bilateral Flowtron boots were applied to the patient's lower extremities. After successful induction of anesthesia and successful endotracheal intubation by the anesthesia team, Bajwa catheter was inserted into the patient's urinary bladder. Subsequent to that, the patient's abdomen was shaved and prepped with ChloraPrep stick and draped in a standard surgical fashion. Prior to the beginning of the procedure, a time-out was called in the room and everyone in the room were in agreement. Using Veress needle, the patient's abdomen was entered at the umbilicus, and pneumoperitoneum was achieved with good opening pressures. Once this was accomplished, using a 11-blade scalpel knife, approximately 5-mm incision was made in the umbilicus in the longitudinal fashion. Subsequent to that, a 5-mm trocar was introduced into the patient's abdomen. At this point in time, a 5-mm 0-degree scope was introduced into the patient's abdomen. Abdomen was inspected. Then, attention was turned to the lower mid abdomen. Using a 11-blade scalpel knife, approximately 5-mm incision was made in the lower mid abdomen with 11-blade scalpel knife in a transverse fashion. Subsequent to that, another 5-mm trocar was introduced into the patient's abdomen. At this point in time, attention was turned to the left lower quadrant of the patient's abdomen. Using 11-blade scalpel knife, approximately 1-cm incision was made in the transverse fashion. Subsequent to that, a 12-mm trocar was introduced into the patient's abdomen. At this point in time, using two [place] and Gesabas graspers, appendix was mobilized and subsequent to that using [place] dissector, the window was created between the appendix and the mesoappendix. Appendix was taken right at the base with 60-mm blue load on an Endo JCARLOS stapler. Subsequent to that, mesoappendix was taken with a 65-mm polk load on the Endo JCARLOS stapler. Once the stapler was fired in the mesoappendix, there appeared to be a little bit of oozing at the staple line that hemostasis was achieved with two Hemoclips. Once this was accomplished, the hemostasis was confirmed. EndoCatch bag was introduced into the patient's abdomen. Appendix was placed inside of the bag and the bag was closed. At this point in time, using suction irrigation device, small clot in the right lower quadrant was suctioned out. Subsequent to that, a 12-mm trocar together with EndoCatch bag. The appendix was removed from the patient's abdomen and passed off to the [facility] as a specimen. Fascial layer at the 12-mm trocar site was closed with two interrupted 0-Vicryl sutures on the UR-6 needle. Subsequent to that, the patient's abdomen was fully desufflated. Rest of the trocars were removed from the patient's abdomen, and the skin was closed with a 4-0 Monocryl suture in a running subcuticular fashion. At the end of the procedure, incision sites were infiltrated with 0.5% Marcaine local anesthetic. The patient's abdomen was washed and dried, and Dermabond was applied to the site of the incisions. Subsequent to that, Bajwa catheter was removed from the patient's urinary bladder. The patient was successfully extubated by the anesthesia team, transferred to the stretcher, and taken to the recovery room in a stable condition. At the end of the procedure, all instrument counts, needles and sponges were correct. Mikie Duke MD
== END 2018-12-25 16:07 | disposition home or self-care (01) | DRG 343 ==
LOC: H.ER 19:08 → H.ERHOLD 22:33 → H.MEDSURG1 12-25 01:51
PROVIDERS: ADMIT Family Medicine; ATTEND Family Medicine
PROC: 0DTJ4ZZ Resection of Appendix, Percutaneous Endoscopic Approach (ICD-10-PCS; principal; 2018-12-25 10:00)
DX: K35.80 Unspecified acute appendicitis (principal); K29.80 Duodenitis without bleeding; I10 Essential (primary) hypertension